=== PATIENT | male | born 1995 | race American Indian/Alaskan Native ===

== ENCOUNTER 2019-11-21 13:06 | Emergency (ER) | payer SELFPAY ==
[2019-11-21 13:17] VITALS: BP 129/73
--- NOTE | 2019-11-21 14:02 | Event Note ---
ED Screening Note Date of service: 11/21/19 Time: 14:00 ED Screening Note: 24-year-old -[place] male presents to the emergency room for cut to his face happened 2 to 3 hours ago today. Patient states that he tripped over a glass and cut his face. Patient reports his last tetanus shot was 2015. No allergies to medication does not take any medication and no past medical history. This initial assessment/diagnostic orders/clinical plan/treatment(s) is/are subject to change based on patients health status, clinical progression and re- assessment by fellow clinical providers in the ED. Further treatment and workup at subsequent clinical providers discretion. Patient/guardian urged not to elope from the ED as their condition may be serious if not clinically assessed and managed. Initial orders include:
== END 2019-11-21 19:35 | disposition left against medical advice (07) ==
LOC: ED 13:06
DX: R51 Headache (principal); Z53.21 Procedure and treatment not carried out due to patient leaving prior to being seen by health care provider